=== PATIENT | female | born 1995 ===

== ENCOUNTER 2017-03-01 21:17 | Emergency (ER) | payer OTHER ==
[2017-03-01 21:32] VITALS: BP 115/71
--- NOTE | 2017-03-01 21:48 | ED ---
HPI Chest Pain - HPI Summary HPI Summary: 21 yr old female with the complaint of chest tightness, pleuritic chest pain, sob. Onset of these symptoms this morning. SHe is 29 weeks and goes to [facility] for OB care. She has had no leakage of fluid today. She has no abdominal pain now. She has had pain in lower chest that is tight, worse with breathing and she has felt winded today. She had mild irritation to throat three days ago, and mild congestion yesterday, but today her chest symptoms began. She states she has had swelling in legs with the . - History of Current Complaint Chief Complaint: UCRespiratory Time Seen by Provider: 03/01/17 21:36 - Allergy/Home Medications Allergies/Adverse Reactions: Allergies Allergy/AdvReac Type Severity Reaction Status Date / Time No Known Allergies Allergy Verified 03/01/17 21:32 Home Medications: Home Medications Ferrous Fumarate [Iron] 18 mg PO 03/01/17 [History Confirmed 03/01/17] Folic Acid TAB* [Folvite TAB*] 1 mg PO DAILY 03/01/17 [History Confirmed ] Multivitamins & Medicare Nurse [Prenate] 1 chw PO 03/01/17 [History] PMH/Surg Hx/FS Hx/Imm Hx - Surgical History Surgery Procedure, Year, and Place: T & A, ear tubes Infectious Disease History: No Infectious Disease History: Denies: Traveled Outside the [place] in Last 30 Days - Family History Known Family History: Positive: None - Social History Alcohol Use: None Substance Use Type: Reports: None Smoking Status (MU): Former Smoker Type: Cigarettes Amount Used/How Often: 1 per day Have You Smoked in the Last Year: No Review of Systems Positive: Other - throat irritation Positive: Chest Pain Positive: Shortness Of Breath All Other Systems Reviewed And Are Negative: Yes Physical Exam Vital Signs On Initial Exam: Initial Vitals Temp Pulse Resp BP Pulse Ox 98.6 F 86 16 115/71 99 03/01/17 21:25 03/01/17 21:25 03/01/17 21:25 03/01/17 21:25 03/01/17 21:25 Vital Signs Reviewed: Yes Appearance: Positive: Well-Appearing Head/Face: Positive: Normal Head/Face Inspection ENT: Positive: Pharynx normal, TMs normal Respiratory/Lung Sounds: Positive: Clear to Auscultation, Breath Sounds Present Cardiovascular: Positive: Normal, RRR. Negative: Murmur Abdomen Description: Positive: Nontender Musculoskeletal: Positive: Normal, Strength/ROM Intact Neurological: Positive: Normal, Sensory/Motor Intact, Alert, Oriented to Person Place, Time, CN Intact II-III Psychiatric: Positive: Normal Diagnostics - Vital Signs Vital Signs Temp Pulse Resp BP Pulse Ox 03/01/17 21:25 98.6 F 86 16 115/71 99 - Laboratory Lab Statement: Any lab studies that have been ordered have been reviewed, and results considered in the medical decision making process. Chest Pain Course/Dx - Course Course Of Treatment: 21yr old with CP, SOB coughing, Discussed with Shirley Attending.Dr Serna. - Diagnoses Provider Diagnoses: Chest pain, SOB (shortness of breath), Discharge - Discharge Plan Condition: Good Disposition: TRANS HIGHER LVL OF CARE FAC
== END 2017-03-01 21:55 | disposition short-term general hospital (02) ==
LOC: UCCORT 21:17
DX: O26.893 Other specified pregnancy related conditions, third trimester (principal); R07.89 Other chest pain; R06.02 Shortness of breath; R07.81 Pleurodynia; Z3A.29 29 weeks gestation of pregnancy; Z87.891 Personal history of nicotine dependence
CPT/HCPCS: 99202; G0463